=== PATIENT | male | born 1980 | race Caucasian/White ===

== ENCOUNTER 2025-01-11 05:34 | Emergency (ER) | payer OTHER ==
[2025-01-11] MEDS ORDERED: NA CHLORIDE 0.9% 1,000 ML ONE (05:52)
[2025-01-11 06:24] LABS: Absolute Lymphocytes (CBC) 3.7 K/uL (0.7-4.9); Hematocrit 43.6 % (39.6-49.0); Hemoglobin 14.8 g/dL (13.6-17.9); MCH 29.5 pg (27.0-35.0); MCHC 34.0 g/dL (32.0-36.0); MCV 86.6 fL (80-100); MPV 7.6 fL (7.6-11.3); Nucleated RBC Absolute Count 0.0 (0-0); Nucleated Red Blood Cells % 0.1 % (0-0); RBC Red Blood Cell Count 5.03 M/uL (4.33-5.43); White Blood Count 6.90 thou/uL (4.3-10.9)
[2025-01-11] MEDS ORDERED: MECLIZINE HCL 12.5 MG TAB ONE (06:37)
--- NOTE | 2025-01-11 06:39 | RAD REPORT ---
EXAM: CT Head Without Intravenous Contrast CLINICAL HISTORY: The patient is 44 years old and is Male; Weakness. TECHNIQUE: Axial computed tomography images of the head/brain without intravenous contrast. Sagit garrett and coronal reformatted images were created and reviewed. This CT exam was performed using one or more of the following dose reduction techniques: automated exposure control, adjustment of t he mA and/or kV according to patient size, and/or use of iterative reconstruction technique. COMPARISON: No relevant prior studies available. FINDINGS: Brain: Unremarkable. No hemorrhage. No significant white matter disease. No edema. Ventricles: Unremarkable. No ventriculomegaly. Bones/joints: Unremarkable. No acute skull fracture. Soft tissues: Unremarkable. Sinuses: Unremarkable as visualized. No acute sinusitis. Mastoid air cells: No significant mastoid fluid. IMPRESSION: No acute intracranial findings. No hemorrhage. Electronically signed by: Mary Ellen Dick MD 01/11/2025 06:34 AM CDT RP V2 Due to temporary technical issues with the PACS/[employer] reporting system, reports are being dharmesh d by the in-house radiologist without review as a courtesy to ensure prompt reporting the interpreting radiologist is fully responsible for the content of the report. Transcribed Date/Time: 01/11/2025 6:38 AM
[2025-01-11 06:43] LABS: Anion Gap 11.3 mEq/L (5.0-15.0); BUN Blood Urea Nitrogen 16.0 mg/dL (7-18); Glucose Level 175.0 mg/dL (74-106); Potassium 3.3 mEq/L (3.5-5.1); Troponin High Sensitivity 5.3 pg/mL (<58.9)
--- NOTE | 2025-01-11 07:37 | RAD REPORT ---
EXAM: Chest Single View HISTORY: 44 years Male WEAKNESS COMPARISON: No prior exams FINDINGS: LUNGS/PLEURA: The lungs are clear. No pleural effusions or pneumothorax. No pulmonary edema. CARDIAC/MEDIASTINUM: The cardiac silhouette is within normal limits. UPPER ABDOMEN: No significant abnormality. BONES: No acute abnormality. LINES/TUBES/OTHER: N/A IMPRESSION: No evidence of acute cardiopulmonary disease.
--- NOTE | 2025-01-11 08:23 | ER ---
Nurse's Notes [facility] Name: Nate Xavier Age: 44 yrs Sex: Male : 1980 Arrival Date: 01/11/2025 Time: 05:34 Bed 4 Private MD: Diagnosis: Benign paroxysmal vertigo, unspecified ear Presentation: 01/11 05:49 Chief complaint: Patient states: I woke up at 0450 and was super dizzy with nausea bm8 vomitting. Coronavirus screen: At this time, the client does not indicate any symptoms associated with coronavirus-19. Ebola Screen: Patient negative for fever greater than or equal to 101.5 degrees Fahrenheit, and additional compatible Ebola Virus Disease symptoms Patient denies exposure to infectious person. Patient denies travel to an Ebola-affected area in the 21 days before illness onset. No symptoms or risks identified at this time. Initial Sepsis Screen: Does the patient meet any 2 criteria? No. Patient's initial sepsis screen is negative. Does the patient have a suspected source of infection? No. Patient's initial sepsis screen is negative. Risk Assessment: Do you want to hurt yourself or someone else? Patient reports no desire to harm self or others. Onset of symptoms was January 11, 2025 at 04:50. 05:49 Method Of Arrival: EMS: [facility] bm8 05:49 Acuity: AMINA 2 bm8 05:53 Care prior to arrival: Medication(s) given: zofran 4 mg IVP IV initiated. 18 GA, in the bm8 right antecubital area. Triage Assessment: 05:51 General: Appears in no apparent distress. uncomfortable, slender, well groomed, well bm8 developed, well nourished, Behavior is calm, cooperative, appropriate for age. Pain: Denies pain. EENT: No deficits noted. No signs and/or symptoms were reported regarding the EENT system. Neuro: No deficits noted. Level of Consciousness is awake, alert, obeys commands, Oriented to person, place, time, situation, Appropriate for age Reports dizziness, weakness. Cardiovascular: Denies chest pain, shortness of breath, Heart tones S1 S2 present Capillary refill < 3 seconds in bilateral fingers Pulses are all present. Respiratory: Airway is patent Respiratory effort is even, unlabored, Respiratory pattern is regular, symmetrical, Breath sounds are clear bilaterally. GI: Abdomen is flat, Reports nausea, vomiting. : No deficits noted. No signs and/or symptoms were reported regarding the genitourinary system. Derm: Skin is intact, Skin is clammy, diaphoretic, Skin is pale. Musculoskeletal: Reports weakness in all over. Historical: - Allergies: 05:51 No Known Allergies; bm8 - Home Meds: 05:51 None [Active]; bm8 - PMHx: 05:51 None; bm8 - PSHx: 05:51 None; bm8 - Immunization history:: Adult Immunizations up to date. - Infectious Disease History:: Denies. - Social history:: Smoking status: Reported history of juuling and/or vaping. Screenin:54 [facility] ED Fall Risk Assessment (Adult) History of falling in the last 3 months, bm8 including since admission No falls in past 3 months (0 pts) Confusion or Disorientation No (0 pts) Intoxicated or Sedated No (0 pts) Impaired Gait Yes (1 pt) Mobility Assist Device Used No (0 pt) Altered Elimination No (0 pt) Score/Fall Risk Level 0 - 2 = Low Risk Oriented to surroundings, Maintained a safe environment, Educated pt \T\ family on fall prevention, incl call for assistance when getting out of bed, Assessed \T\ reinforced patient's understanding of fall precautions, Hourly rounding (assess needs \T\ fall precautionary measures) done, Used ambulatory aids as needed (educated on \T\ assisted with), Used gait belt as appropriate. Abuse screen: Denies threats or abuse. Nutritional screening: No deficits noted. Tuberculosis screening: No symptoms or risk factors identified. Assessment: 05:54 Reassessment: see triage assessment. bm8 06:56 Reassessment: Patient appears in no apparent distress at this time. Patient and/or bm8 family updated on plan of care and expected duration. Pain level reassessed. Patient is alert, oriented x 3, equal unlabored respirations, skin warm/dry/pink. Patient denies pain at this time. Patient states feeling better. Patient states symptoms have improved. GI: Patient currently denies nausea, vomiting. 09:07 Reassessment: Patient appears in no apparent distress at this time. Patient and/or db family updated on plan of care and expected duration. Pain level reassessed. Patient is alert, oriented x 3, equal unlabored respirations, skin warm/dry/pink. General: Appears in no apparent distress. comfortable, Behavior is calm, cooperative. Neuro: Level of Consciousness is awake, alert, obeys commands, Oriented to person, place, time, situation. GI: Abdomen is flat, non-distended. Vital Signs: 05:49 BP 108 / 77; Pulse 61; Resp 16; Temp 97.9; Pulse Ox 99% ; Weight 81.65 kg; Height 5 ft. bm8 8 in. ; Pain 0/10; 06:27 BP 107 / 72; Pulse 53; Resp 20; Pulse Ox 100% on R/A; kd3 06:56 BP 109 / 75; Pulse 61; Resp 17; Temp 97.9; Pulse Ox 100% ; Pain 0/10; bm8 07:30 BP 107 / 78; Pulse 66; Resp 20; Pulse Ox 100% on R/A; db 08:30 BP 103 / 70; Pulse 60; Resp 20; Pulse Ox 100% on R/A; db 05:49 Body Mass Index 27.37 (81.65 kg, 172.72 cm) bm8 05:49 Pain Scale: Adult bm8 06:56 Pain Scale: Adult bm8 [place] Coma Score: 05:54 Eye Response: spontaneous(4). Motor Response: obeys commands(6). Verbal Response: bm8 oriented(5). Total: 15. 06:56 Eye Response: spontaneous(4). Motor Response: obeys commands(6). Verbal Response: bm8 oriented(5). Total: 15. ED Course: 05:46 Patient arrived in ED. kmf 05:49 Thomas Rey, RN is Primary Nurse. bm8 05:50 Paulette Herrera MD is Attending Physician. sp3 05:51 Triage completed. bm8 05:51 Arm band placed on right wrist. bm8 05:54 Patient has correct armband on for positive identification. Bed in low position. Call bm8 light in reach. Side rails up X 1. Client placed on continuous cardiac and pulse oximetry monitoring. NIBP monitoring applied. air sampling and monitoring on. Pulse ox on. NIBP on. Door closed. Noise minimized. Warm blanket given. Pillow given. Verbal reassurance given. Head of bed elevated. 05:54 No provider procedures requiring assistance completed. Initial lab(s) drawn, by ED bm8 staff, sent to lab. EKG done, by ED staff, reviewed by Paulette Herrera MD. Maintain EMS IV. Dressing intact. Good blood return noted. Site clean \T\ dry. Gauge \T\ site: 18g RAC. Flushed with 10 mL NS. Patient maintains SpO2 saturation greater than 95% on room air. 06:19 Head Brain Wo Cont CT In Process Unspecified. EDMS 06:39 XRAY Chest (1 view) In Process Unspecified. EDMS 07:22 Attending Physician role handed off by Paulette Herrera MD ms3 07:22 Fco Heller DO is Attending Physician. ms3 08:21 Arcenio Kan MD is Referral Physician. ms3 09:07 Provided Education on: DISCHARGE AND PRESCRIPTIONS. db 09:07 IV discontinued, intact, bleeding controlled, No redness/swelling at site. db Administered Medications: 05:56 Drug: NS 0.9% IV 1000 ml IV at 1000 ml once; to be given as a bolus over 60 minutes bm8 Route: IV; Rate: 1000 ml; Site: right antecubital; 06:57 Follow up: Response: No adverse reaction; IV Status: Completed infusion bm8 06:40 Drug: Meclizine PO 25 mg PO once Route: PO; bm8 06:57 Follow up: Response: No adverse reaction bm8 Medication: 05:54 VIS not applicable for this client. bm8 Point of Care Testing: Blood Glucose: 05:56 Blood Glucose: 170 mg/dL; bm8 Ranges: Outcome: 08:22 Discharge ordered by . ms3 09:07 Discharged to home ambulatory, db 09:07 Condition: stable 09:07 Discharge instructions given to patient, Instructed on discharge instructions, follow up and referral plans. Prescriptions given X 1, 09:10 Patient left the ED. db Signatures: Dispatcher [employer] EDMS Fco Heller DO DO ms3 Paulette Herrera MD MD sp3 Radha Ferro RN RN kd3 Tiffanie Monteiro, RN RN db Sary [facility] Thomas Rey RN RN bm8
--- NOTE | 2025-01-11 08:23 | EDPHYS ---
Physician Documentation [facility] Name: Nate Xavier Age: 44 yrs Sex: Male : 1980 Arrival Date: 01/11/2025 Time: 05:34 Bed 4 Private MD: ED Physician Fco Heller HPI: 01/11 06:15 This 44 yrs old Male presents to ER via EMS with complaints of Nausea/Vomiting, sp3 Dizziness. 06:15 44-year-old male with no past medical history presents with dizziness, nausea and sp3 generalized weakness that started upon awakening. Patient has no prior history of similar symptoms. Patient denies being on any medications or any significant surgeries. Review of system negative for trauma, headache, neck pain, chest pain, shortness of breath, abdominal pain, diarrhea, syncope, anemia, melena, dark stools, travel history, known sick contacts, fever, prolonged immobilization, or any other signs or symptoms on ROS at this time. Dizziness is described as vertiginous without tinnitus.. Historical: - Allergies: 05:51 No Known Allergies; bm8 - Home Meds: 05:51 None [Active]; bm8 - PMHx: 05:51 None; bm8 - PSHx: 05:51 None; bm8 - Immunization history:: Adult Immunizations up to date. - Infectious Disease History:: Denies. - Social history:: Smoking status: Reported history of juuling and/or vaping. ROS: 06:16 Constitutional: Negative for fever, chills, and weight loss, Eyes: Negative for injury, sp3 pain, redness, and discharge, ENT: Negative for injury, pain, and discharge, Neck: Negative for injury, pain, and swelling, Cardiovascular: Negative for chest pain, palpitations, and edema, Respiratory: Negative for shortness of breath, cough, wheezing, and pleuritic chest pain, Abdomen/GI: Negative for abdominal pain, nausea, vomiting, diarrhea, and constipation, Back: Negative for injury and pain, MS/Extremity: Negative for injury and deformity, Skin: Negative for injury, rash, and discoloration, Psych: Negative for depression, anxiety, suicide ideation, homicidal ideation, and hallucinations, Allergy/Immunology: Negative for hives, rash, and allergies, Endocrine: Negative for neck swelling, polydipsia, polyuria, polyphagia, and marked weight changes, Hematologic/Lymphatic: Negative for swollen nodes, abnormal bleeding, and unusual bruising, 06:16 All other systems are negative, Exam: 06:17 Constitutional: This is a well developed, well nourished patient who is awake, alert, sp3 and in no acute distress. Head/Face: Normocephalic, atraumatic. Eyes: Pupils equal round and reactive to light, extra-ocular motions intact. Lids and lashes normal. Conjunctiva and sclera are non-icteric and not injected. Cornea within normal limits. Periorbital areas with no swelling, redness, or edema. Neck: Trachea midline, no thyromegaly or masses palpated, and no cervical lymphadenopathy. Supple, full range of motion without nuchal rigidity, or vertebral point tenderness. No Meningismus. Chest/axilla: Normal chest wall appearance and motion. Nontender with no deformity. No lesions are appreciated. Cardiovascular: Regular rate and rhythm with a normal S1 and S2. No gallops, murmurs, or rubs. Normal PMI, no JVD. No pulse deficits. Respiratory: Lungs have equal breath sounds bilaterally, clear to auscultation and percussion. No rales, rhonchi or wheezes noted. No increased work of breathing, no retractions or nasal flaring. Abdomen/GI: Soft, non-tender, with normal bowel sounds. No distension or tympany. No guarding or rebound. No evidence of tenderness throughout. Back: No spinal tenderness. No costovertebral tenderness. Full range of motion. Skin: Warm, dry with normal turgor. Normal color with no rashes, no lesions, and no evidence of cellulitis. MS/ Extremity: Pulses equal, no cyanosis. Neurovascular intact. Full, normal range of motion. Psych: Awake, alert, with orientation to person, place and time. Behavior, mood, and affect are within normal limits. 06:17 Neuro: Normal neurological exam. Patient's vertigo is reproducible with motion. No nystagmus noted., 06:19 ECG was reviewed by the Attending Physician. EKG demonstrates normal sinus rhythm at 61 sp3 bpm with normal intervals, normal QRS, normal axis and normal ST/T-segment's without evidence of acute ischemia. Vital Signs: 05:49 BP 108 / 77; Pulse 61; Resp 16; Temp 97.9; Pulse Ox 99% ; Weight 81.65 kg; Height 5 ft. bm8 8 in. ; Pain 0/10; 06:27 BP 107 / 72; Pulse 53; Resp 20; Pulse Ox 100% on R/A; kd3 06:56 BP 109 / 75; Pulse 61; Resp 17; Temp 97.9; Pulse Ox 100% ; Pain 0/10; bm8 07:30 BP 107 / 78; Pulse 66; Resp 20; Pulse Ox 100% on R/A; db 08:30 BP 103 / 70; Pulse 60; Resp 20; Pulse Ox 100% on R/A; db 05:49 Body Mass Index 27.37 (81.65 kg, 172.72 cm) bm8 05:49 Pain Scale: Adult bm8 06:56 Pain Scale: Adult bm8 [place] Coma Score: 05:54 Eye Response: spontaneous(4). Motor Response: obeys commands(6). Verbal Response: bm8 oriented(5). Total: 15. 06:56 Eye Response: spontaneous(4). Motor Response: obeys commands(6). Verbal Response: bm8 oriented(5). Total: 15. MDM: 05:50 Medical Screening Exam initiated sp3 06:18 Data reviewed: vital signs, nurses notes, lab test result(s), EKG, radiologic studies. sp3 ED course: 44-year-old male with vague symptoms of dizziness/vertigo and generalized weakness. Differential diagnosis includes idiopathic benign vertigo, other inner ear process, other intracranial process, dehydration, acute coronary syndrome, viral illness, among others. Workup will include CT scan of the head, extended cardiac workup including EKG and troponin, and treatment with meclizine. I have reviewed the CT and do not see any significant findings on my read. We will go ahead with the meclizine. Awaiting attending read from radiology. Vital signs are normal. Patient received ondansetron IV prior to arrival via EMS we have added on normal saline 1 L here in the ED. Disposition pending workup and patient course.. 07:22 Transition of care: Care assumed from Paulette Herrera MD. ms3 08:23 Differential diagnosis: BPV vs CVA vs Electrolyte abnormality. I considered the ms3 following discharge prescriptions or medication management in the emergency department Medications were administered in the Emergency Department. See JUN. 08:23 Independent interpretation of the following test(s) in the Emergency Department EKG: ms3 See my EKG interpretation above CT Scan: My interpretation is CT head images reviewed by me do not reveal ICH. Counseling: I had a detailed discussion with the patient and/or guardian regarding lab results, radiology results, the need for outpatient follow up, to return to the emergency department if symptoms worsen or persist or if there are any questions or concerns that arise at home. Special discussion: I discussed with the patient/guardian in detail that at this point there is no indication for admission to the hospital. It is understood, however, that if the symptoms persist or worsen the patient needs to return immediately for re-evaluation. ED course: On reevaluation patient improved, alert and orient x 4, no apparent distress, nontoxic-appearing, speaking full sentences, tolerating p.o. Patient to follow-up with Dr. Kan in 2 to 3 days. Patient understands and agrees with plan. Patient given prescription for meclizine. All questions were answered. Return precautions were discussed include worsening symptoms, or any other concerns.. 01/11 05:50 Order name: Basic Metabolic Panel; Complete Time: 06:44 br2 01/11 05:50 Order name: CBC with Diff br2 01/11 05:50 Order name: Troponin HS; Complete Time: 06:44 br2 01/11 06:00 Order name: Glucose, Ancillary Testing; Complete Time: 06:35 EDMS 01/11 06:03 Order name: Lipase; Complete Time: 06:35 sp3 01/11 06:29 Order name: Manual Differential EDMS 01/11 05:50 Order name: XRAY Chest (1 view); Complete Time: 07:38 br2 01/11 05:50 Order name: Head Brain Wo Cont CT; Complete Time: 07:38 br2 01/11 05:50 Order name: EKG; Complete Time: 05:50 br2 01/11 05:50 Order name: Cardiac monitoring; Complete Time: 05:56 br2 01/11 05:50 Order name: EKG - Nurse/Tech; Complete Time: 05:56 br2 01/11 05:50 Order name: IV Saline Lock; Complete Time: 05:56 br2 01/11 05:50 Order name: Labs collected and sent; Complete Time: 05:56 br2 01/11 05:50 Order name: O2 Per Protocol; Complete Time: 05:56 br2 01/11 05:50 Order name: O2 Sat Monitoring; Complete Time: 05: br2 Administered Medications: 05:56 Drug: NS 0.9% IV 1000 ml IV at 1000 ml once; to be given as a bolus over 60 minutes bm8 Route: IV; Rate: 1000 ml; Site: right antecubital; 06:57 Follow up: Response: No adverse reaction; IV Status: Completed infusion bm8 06:40 Drug: Meclizine PO 25 mg PO once Route: PO; bm8 06:57 Follow up: Response: No adverse reaction bm8 Point of Care Testing: Blood Glucose: 05:56 Blood Glucose: 170 mg/dL; bm8 Ranges: Critical Glucose Levels:Adult <50 mg/dl or >400 mg/dl <40 mg/dl or >180 mg/dl Disposition Summary: 01/11/25 08:22 Discharge Ordered Notes: Location: Home ms3 Condition: Stable ms3 Diagnosis - Benign paroxysmal vertigo, unspecified ear ms3 Followup: ms3 - With: Arcenio Kan MD - When: 2 - 3 days - Reason: Recheck today's complaints Discharge Instructions: - Discharge Summary Sheet ms3 - Benign Positional Vertigo ms3 - How to Perform the Aram Maneuver ms3 Forms: - Medication Reconciliation Form ms3 - Antibiotic Education ms3 - Prescription Opioid Use ms3 - Patient Portal Instructions ms3 - Leadership Thank You Letter ms3 Prescriptions: - Meclizine 25 mg Oral Tablet - take 1 tablet ORAL route every 8 hours As needed; 30 tablet; Refills: 0, ms3 Product Selection Permitted Signatures: Dispatcher [employer] EDMS Fco Heller, DO DO ms3 Paulette Herrera MD MD sp3 Thomas Rey, RN RN bm8 Ade Alonzo, RN RN br2 Corrections: (The following items were deleted from the chart) 05:50 05:50 Head Brain Wo Cont+CT.RAD.BRZ ordered. EDMS EDMS 06:04 06:04 URINE DRUG SCREEN+UC.LAB.BRZ ordered. EDMS EDMS 06:04 06:04 LIPASE+C.LAB.BRZ ordered. EDMS EDMS 06:04 06:04 UA Rfx Vidal Cult if indicated+U.LAB.BRZ ordered. EDMS EDMS
[2025-01-11 08:45] LABS: Anisocytosis SLIGHT; Blood Morphology Comment NOTED (NOT SEEN); Differential Total Cells Count 100; Segmented Neutrophils 33 % (40-80)
[2025-01-11 09:14] VITALS: TEMP 97.9
[2025-01-11 09:16] VITALS: O2SAT 100
[2025-01-11 09:21] VITALS: BP 103/70
== END 2025-01-11 09:10 | disposition home or self-care (01) ==
LOC: ER 05:34
DX: H81.10 Benign paroxysmal vertigo, unspecified ear (principal); R11.2 Nausea with vomiting, unspecified; R53.1 Weakness
CPT/HCPCS: 93005; 85025; 80048; 36415; 82947; 84484; 83690; 70450; 71045; 96360; 99285; J8597; J7030